=== PATIENT | female | born 1975 | race Asian ===

== ENCOUNTER 2019-07-06 03:07 | Emergency (ER) | payer OTHER, SELFPAY ==
--- NOTE | 2019-07-06 | DI.US.S_ITS ---
PROCEDURE: US PELVIC COMPLETE INDICATIONS: BLEEDING TECHNIQUE: Real-time scanning was performed of the pelvic organs, with image documentation. Additional endovaginal scanning was necessary due to incomplete visualization of the adnexal and endometrial structures by transabdominal scanning. COMPARISON: [facility], CR, XR CHEST 1V, 07/06/2019, 3:42. FINDINGS: Transabdominal scanning: Limited scanning through the kidneys shows no hydronephrosis. No pathologic free abdominal or pelvic fluid. Endovaginal scanning: Uterus: Uterus is normal in size at 8.7 x 4.5 x 5.7 cm. The endometrium measures 4 mm in combined thickness. Ovaries: The right ovary is not seen. The left ovary measures 2.2 x 1.9 x 1.4 cm. No adnexal masses are seen. IMPRESSION: Normal examination, yet with nonvisualization of the right ovary. Note: No significant discrepancy from the preliminary report. Dictated by: Clarence Greene M.D. on 07/06/2019 at 9:28 Approved by: Clarence Greene M.D. on 07/06/2019 at 9:30
[2019-07-06 03:11] VITALS: BP 135/84; PULSE 94; RESP 14; TEMP 36.3; O2SAT 99; BMI 28.3
--- NOTE | 2019-07-06 03:12 | DI.RAD.S_ITS ---
PROCEDURE: XR CHEST 1V INDICATIONS: syncope TECHNIQUE: One view of the chest was acquired. COMPARISON: [facility], , US PELVIC COMPLETE, 07/06/2019, 4:03. FINDINGS: Surgical changes and devices: None. Lungs and pleura: On this semiupright portable chest examination, no large pneumothorax or large pleural effusions are seen. No focal infiltrates are seen. Low lung volumes are noted. This causes a crowded appearance to the lung markings and limits evaluation. Mediastinum: Mediastinal contours appear normal. Heart size is normal. Bones and chest wall: No suspicious bony lesions. Overlying soft tissues appear unremarkable. IMPRESSION: Limited portable chest examination, without a significant cardiopulmonary abnormality identified. Note: No significant discrepancy from the preliminary report. Dictated by: Clarence Greene M.D. on 07/06/2019 at 9:17 Approved by: Clarence Greene M.D. on 07/06/2019 at 9:18
[2019-07-06 03:20] LABS: Add Manual Diff / Slide Review NO; Basophils Absolute Auto 100 /uL (0-100); Basophils Percent Auto 0.8 % (0-2); Eosinophils Absolute Auto 100 /uL (0-450); Hematocrit 48.1 % (36-46); Hemoglobin 16.2 g/dL (12.0-16.0); Lymphocytes Absolute Auto 3400 /uL (1100-4500); Lymphocytes Percent Auto 29.3 % (25-40); Mean Corpuscular HGB Conc 33.7 % (30-36); Mean Corpuscular Hemoglobin 28.5 PG (26-34); Mean Corpuscular Volume 84.6 fL (80-100); Monocytes Absolute Auto 900 /uL (0-900); Monocytes Percent Auto 7.7 % (3-14); Neutrophils Absolute Auto 7000 /uL (1500-7000); Neutrophils Percent Auto 61.2 % (50-75); Platelet Count 240 X10^3/uL (150-400); Red Blood Cell Count 5.68 X10^6/uL (4.0-5.2); Red Cell Distribution Width 13.6 % (11.6-14.8); White Blood Cell Count 11.5 X10^3/uL (4.5-11.0)
[2019-07-06 03:56] LABS: Alanine Aminotransferase 19 IU/L (<35); Albumin 4.7 g/dL (3.5-5.0); Albumin Globulin Ratio 1.3 (1.0-2.8); Aspartate Aminotransferase 26 IU/L (14-36); Bilirubin Total 0.7 mg/dL (0.2-1.3); Blood Urea Nitrogen 23 mg/dL (7-17); Calcium 10.2 mg/dL (8.4-10.2); Carbon Dioxide 27 mmol/L (22-32); Chloride 97 mmol/L (98-107); Creatine Kinase 52 U/L (30-135); Estimated Glomerular Filt Rate > 60.0 mL/min (>60); Globulin 3.7 g/dL (1.7-4.1); Glucose 308 mg/dL (70-100); Sodium 134 mmol/L (137-145); Total Protein 8.4 g/dL (6.3-8.2)
[2019-07-06 04:03] LABS: HEMOLYSIS 92 (0-50)
[2019-07-06 04:04] LABS: Potassium 4.7 mmol/L (3.4-5.1)
[2019-07-06 04:07] LABS: Alkaline Phosphatase 263 U/L (38-126); Troponin I < 0.012 ng/mL (0.01-0.034)
[2019-07-06 04:30] LABS: D Dimer 470 ng/mL (<230)
--- NOTE | 2019-07-06 05:19 | ED_ITS ---
HPI - Syncope General Chief Complaint: Syncope Stated Complaint: Syncope x3 Time Seen by Provider: 07/06/19 03:10 Source: patient and EMS Mode of arrival: EMS Limitations: no limitations History of Present Illness HPI narrative: 44-year-old female daily smoker presents by EMS for evaluation of syncope or near syncope this evening. The patient states she has had 2, if not 3 episodes of feeling extremely lightheaded which may or may not have been provoked. It least 1 was during a change of position. She denies any chest pain, shortness of breath or palpitations. She denies any new medications or diet. She does state that she is currently on her menses and is having significant vaginal bleeding, up to 1 pad per hour for almost a day. She states that sometimes that is normal for her but not always. She denies any dysuria, frequency or urgency. She denies any recent vomiting or diarrhea. She does sta te that she feels the episodes coming. She has had no seizure-like activity she denies any alcohol or street drugs. She denies any recent travel MD complaint: loss of consciousness, felt faint, almost passed out and collapsed Prodromal symptoms: lightheaded Witnessed: yes - by bystander Context: standing up Injuries sustained associated with event: none Current symptoms: lightheaded Related Data Previous Rx's Medication Instructions Recorded medroxyprogesterone See Rx Instructions .ROUTE 07/06/19 .COMPLEX #40 tab Allergies Allergy/AdvReac Type Severity Reaction Status Date / Time No Known Drug Allergies Allergy Verified 07/06/19 03:17 Review of Systems Constitutional Constitutional: Denies chills, Denies fatigue, Denies fever(s), Denies frequent falls, Denies lethargy and Denies weakness Eyes Eyes: Denies change in vision, Denies eye discharge, Denies irritation and Denies loss of vision ENT Ears, Nose, Mouth, and Throat: Denies change in voice, Denies dizziness, Denies neck pain, Denies sore throat and Denies throat swelling Cardiovascular Cardiovascular: Denies chest pain, Reports syncope, Denies irregular heart rhythm, Denies lightheadedness, Denies palpitations, Denies dyspnea, Denies dyspnea on exertion and Denies orthopnea Respiratory Respiratory: Denies cough, Denies dyspnea, Denies dyspnea on exertion and Denies wheezing Gastrointestinal Gastrointestinal: Denies abdominal pain, Denies change in bowel habits, Denies diarrhea, Denies nausea and Denies vomiting Genitourinary Genitourinary: Reports abnormal vaginal bleeding, Denies hematuria, Denies flank pain, Denies urinary incontinence and Denies urinary urgency Musculoskeletal Musculoskeletal: Denies back pain, Denies muscle weakness, Denies neck pain, Denies numbness and Denies tingling Integumentary/Breasts Skin/Breast: Denies pruritus, Denies erythema, Denies rash and Denies wounds Neurologic Neurologic: Denies behavioral changes, Denies confusion, Denies dizziness, Reports syncope, Denies frequent falls, Denies loss of vision, Denies numbness, Denies tingling and Denies weakness Psychiatric Psychiatric: Denies anxiety, Denies behavioral changes, Denies confusion, Denies depression, Denies homicidal ideation and Denies suicidal ideation Endocrine Endocrine: Denies fatigue, Denies flushing and Denies palpitations Hematologic/Lymphatic Hematologic/Lymphatic: Denies easy bruising Allergic/Immunologic Allergic/Immunologic: Denies urticaria, Denies throat swelling and Denies wheezing Patient History Social History Smoking Status: Current every day smoker Smoking Status: Current every day smoker alcohol intake frequency: 0-2 drinks per day Substance Use Type: does not use Exam Initial Vital Signs Initial Vital Signs: Vital Signs Temperature 97.4 F L 07/06/19 03:11 Pulse Rate 94 H 07/06/19 03:11 Respiratory Rate 14 07/06/19 03:11 Blood Pressure 135/84 07/06/19 03:11 Pulse Oximetry 99 07/06/19 03:11 Const General: cooperative and well developed Nutritional Appearance: well nourished [facility] Head: normocephalic and atraumatic Ears: external ears normal and TM's normal bilaterally Nose: external nose normal and No nasal discharge Face and sinus: sinuses nontender, face symmetric, no sinus tenderness and No dry mucous membranes Mouth: oral mucosae normal and moist mucous membranes Teeth and gingiva: dentition normal Throat: tonsils normal and uvula midline Eyes General: appearance normal, both eyes and all related structures Eyelids: eyelids normal Conjunctivae: conjunctivae normal Sclera: sclerae normal Pupils: PERRL EOM: EOM intact bilaterally Neck Neck: normal visual inspection, trachea midline, No lymphadenopathy, No midline deformity and No JVD Lymphatic: No lymphedema Chest Chest: normal inspection of the chest Resp Effort & Inspection: normal respiratory effort, able to speak in complete sentences, no respiratory distress and no use of accessory muscles Auscultation: clear to auscultation bilaterally, no rales, no rhonchi and no wheezes Cardio Rate: regular rate Rhythm: regular rhythm Heart Sounds: no click, no gallops, no murmurs and no rubs Pulses: normal peripheral pulses GI Inspection: non-distended Palpation: soft, no hepatosplenomegaly, No guarding, No pulsatile mass and No tender Auscultation: normal bowel sounds Speculum Exam - Vagina: vaginal bleeding Bimanual Exam- Vagina & Uterus: normal bimanual exam OB/External & Speculum: vaginal bleeding Back/Spine/Pelvis Back: No CVA tenderness Cervical Spine: cervical ROM normal and No pain with cervical ROM Thoracic/Lumbar Spine: thoracic and lumbar spine normal to inspection Skin General: no rashes or lesions noted, No jaundice and No petechiae Neuro General: alert, oriented x3, gait normal and no focal motor deficits Speech: speech normal Extrem General: full ROM, no clubbing, cyanosis or edema, no pedal edema and no calf tenderness Psych Appearance: well kempt Mental Status: mental status grossly normal Attitude: cooperative Thought Content: normal and suicidality Judgment: judgment good Course Course Course Narrative: patient feeling much better. Does well with orthostatics and ambulates through department without difficulty Orders Ordered: ED Orders 07/06/19 pelvic complete Stat 07/06/19 02:52 Complete Blood Count AUTO DIFF Stat 07/06/19 03:10 EKG-12 Lead Stat 07/06/19 03:12 XR chest 1V Stat 07/06/19 03:30 Comprehensive Metabolic Panel Stat D Dimer Stat Troponin & CK Cardiac Panel Stat 07/06/19 05:40 Hemoglobin and Hematocrit Stat Sodium Chloride (Normal Saline 0.9%) 1,000 mls @ 150 mls/hr IV CONT SONALI Vital Signs Vital signs: Vital Signs - 8 hr 07/06/19 03:11 07/06/19 05:59 Temperature 97.4 F L Pulse Rate 94 H Pulse Rate [Orthostatic Lying] 86 Pulse Rate [Orthostatic Sitting] 89 Pulse Rate [Orthostatic Standing] 93 H Respiratory Rate 14 Blood Pressure 135/84 Blood Pressure [Orthostatic Lying] 119/68 Blood Pressure [Orthostatic Sitting] 121/73 Blood Pressure [Orthostatic Standing] 124/79 Pulse Oximetry 99 MDM - Syncope Lab Data Result diagrams: 07/06/19 05:40 07/06/19 03:30 Labs: Lab Results 07/06/19 07/06/19 07/06/19 Range/Units 02:52 03:30 03:30 WBC 11.5 H (4.5-11.0) X10^3/uL RBC 5.68 H (4.0-5.2) X10^6/uL Hgb 16.2 H (12.0-16.0) g/dL Hct 48.1 H (36-46) % MCV 84.6 (80-100) fL MCH 28.5 (26-34) PG MCHC 33.7 (30-36) % RDW 13.6 (11.6-14.8) % Plt Count 240 (150-400) X10^3/uL Neut % (Auto) 61.2 (50-75) % Lymph % (Auto) 29.3 (25-40) % Harmon % (Auto) 7.7 (3-14) % Eos % (Auto) 1.0 L (2-4) % Baso % (Auto) 0.8 (0-2) % Neut # (Auto) 7000 (0006-7443) /uL Lymph # (Auto) 3400 (9506-2266) /uL Harmon # (Auto) 900 (0-900) /uL Eos # (Auto) 100 (0-450) /uL Baso # (Auto) 100 (0-100) /uL D-Dimer 470 H (<230) ng/mL Sodium 134 L (137-145) mmol/L Potassium 4.7 (3.4-5.1) mmol/L Chloride 97 L (98-107) mmol/L Carbon Dioxide 27 (22-32) mmol/L BUN 23 H (7-17) mg/dL Creatinine 0.50 L (0.52-1.04) mg/dL Estimated GFR > 60.0 (>60) mL/min BUN/Creatinine Ratio 46.0 H (6-22) Glucose 308 H (70-100) mg/dL Calcium 10.2 (8.4-10.2) mg/dL Total Bilirubin 0.7 (0.2-1.3) mg/dL AST 26 (14-36) IU/L ALT 19 (<35) IU/L Alkaline Phosphatase 263 H (38-126) U/L Total Creatine Kinase 52 (30-135) U/L CK-MB (CK-2) TNP CK-MB (CK-2) Rel Index TNP Troponin I < 0.012 (0.01-0.034) ng/mL Total Protein 8.4 H (6.3-8.2) g/dL Albumin 4.7 (3.5-5.0) g/dL Globulin 3.7 (1.7-4.1) g/dL Albumin/Globulin Ratio 1.3 (1.0-2.8) 07/06/19 Range/Units 05:40 WBC (4.5-11.0) X10^3/uL RBC (4.0-5.2) X10^6/uL Hgb 15.2 (12.0-16.0) g/dL Hct 44.5 (36-46) % MCV (80-100) fL MCH (26-34) PG MCHC (30-36) % RDW (11.6-14.8) % Plt Count (150-400) X10^3/uL Neut % (Auto) (50-75) % Lymph % (Auto) (25-40) % Harmon % (Auto) (3-14) % Eos % (Auto) (2-4) % Baso % (Auto) (0-2) % Neut # (Auto) (4433-3504) /uL Lymph # (Auto) (8677-3112) /uL Harmon # (Auto) (0-900) /uL Eos # (Auto) (0-450) /uL Baso # (Auto) (0-100) /uL D-Dimer (<230) ng/mL Sodium (137-145) mmol/L Potassium (3.4-5.1) mmol/L Chloride (98-107) mmol/L Carbon Dioxide (22-32) mmol/L BUN (7-17) mg/dL Creatinine (0.52-1.04) mg/dL Estimated GFR (>60) mL/min BUN/Creatinine Ratio (6-22) Glucose (70-100) mg/dL Calcium (8.4-10.2) mg/dL Total Bilirubin (0.2-1.3) mg/dL AST (14-36) IU/L ALT (<35) IU/L Alkaline Phosphatase (38-126) U/L Total Creatine Kinase (30-135) U/L CK-MB (CK-2) CK-MB (CK-2) Rel Index Troponin I (0.01-0.034) ng/mL Total Protein (6.3-8.2) g/dL Albumin (3.5-5.0) g/dL Globulin (1.7-4.1) g/dL Albumin/Globulin Ratio (1.0-2.8) Imaging Data US - abdomen: Radiologist's Impression: no abnormal findings ECG Data Interpretation: EKG is normal sinus rhythm rate [ 91] and free of any signs of ischemia or ectopy. No ST segmental elevation or depression. No T wave inversions MDM Narrative Medical decision making narrative: Multiple etiologies for patient's symptoms considered including: [Anemia versus orthostasis versus arrhythmia versus other] Patient's symptoms improved or duration of stay with above-stated therapies. Findings and discharge diagnosis discussed with patient/family followed by verbalization of understanding Return precautions discussed with patient/family whom verbalize understanding. Discharge Plan Departure Patient Disposition: Home Clinical Impression: Syncope due to orthostatic hypotension Instructions: DI for Syncope in Adults (Fainting) Activity Restrictions/Additional Instructions: *You have been diagnosed with fainting, possibly due to heavy vaginal bleeding *What to do: *Take medications as directed *Follow up with your primary care provider in 2-3 days, call for an appointment. Let them know you were seen in the Emergency Department and that we ask that you be seen in follow up *Return to ER if you should have any new, worsening or concerning symptoms Prescriptions: New medroxyprogesterone 10 mg tablet See Rx Instructions .ROUTE .COMPLEX Qty: 40 RF: 0
[2019-07-06 05:45] LABS: Hematocrit 44.5 % (36-46); Hemoglobin 15.2 g/dL (12.0-16.0)
[2019-07-06 05:59] VITALS: BP 119/68; BP 121/73; BP 124/79; PULSE 86; PULSE 89; PULSE 93
[2019-07-06 07:18] VITALS: BP 124/79; PULSE 92; RESP 23; O2SAT 98
== END 2019-07-06 07:18 | disposition home or self-care (01) ==
PROVIDERS: Emergency Provider Emergency Medicine
DX: I95.1 Orthostatic hypotension (principal)
CPT/HCPCS: 36415; 71045; 76830; 76856; 80053; 82550; 84484; 85014; 85018; 85025; 85379; 93005; 99284; 99285

== ENCOUNTER → 2020-08-10 16:59 | Outpatient (CLI) | payer OTHER, SELFPAY ==
--- NOTE | 2020-08-10 17:01 | DI.MRI.S_ITS ---
PROCEDURE: MR SHOULDER LT WO CON INDICATIONS: Adhesive capsulitis of left shoulder TECHNIQUE: Noncontrast oblique coronal T2 fast spin echo with fat saturation, oblique sagittal T1 spin echo and T2 fast spin echo with fat saturation, axial T1 spin echo and T2 fast spin echo with fat saturation through the shoulder. COMPARISON: None. FINDINGS: Image quality: Excellent. Rotator cuff: The supraspinatus, infraspinatus, and subscapularis tendons appear intact throughout. Sagittal images demonstrate no muscle atrophy. Bones and bursae: No bone marrow contusions or fractures. No acromioclavicular joint degeneration. The acromion demonstrates conventional anatomy, without an os acromiale. Fluid noted in the subacromial/subdeltoid bursa compatible with bursitis. Capsule and soft tissues: No glenohumeral joint effusion. There is thickening of the synovium in the axillary pouch compatible with synovitis. Labrum is intact. The long head of the biceps tendon demonstrates normal location and morphology. The rotator interval appears normal, without fibrosis. The coracohumeral ligament is normal in thickness. IMPRESSION: 1. Glenohumeral joint synovitis compatible with clinical history of adhesive capsulitis. 2. Subacromial/subdeltoid bursitis. Dictated by: Alessandra Anderson MD, PhD on 08/11/2020 at 10:25 Approved by: Alessandra Anderson MD, PhD on 08/12/2020 at 17:35
== END ==
PROVIDERS: Referring Provider Family Medicine; Visit Provider Family Medicine
DX: M75.02 Adhesive capsulitis of left shoulder (principal); M75.52 Bursitis of left shoulder
CPT/HCPCS: 73221